=== PATIENT | male | born 1995 | race Caucasian/White ===

== ENCOUNTER 2020-07-25 06:08 | Day surgery (SDC) | payer OTHER ==
[~2020-07-25] VITALS: Ht 182.9 cm; Wt 163.9 kg
[~2020-07-25 06:08] MED LIST: ERGO50000 PO; ESCITALOPRAM OX20 MG PO
--- NOTE | 2020-07-25 11:22 | NUR ---
07/25/20 1121 Loan Morales J 0715 It was reported to Andrzej Banerjee RN and Loan Morales RN that patient's mother stated the patient was suicidal. Andrzej and Loan went in to patient room to address these concerns with patient and mother. The patient stated that he is not suicidal, he has anxiety and depression and is under the care of a mental health provider. He was asked when the last time he felt suicidal he stated when he was in high school in 2011 and 2012. We asked both the patient and his mother if he would like to speak to a mental health provider while here at [facility], both the patient and his mother declined. We proceeded with case as scheduled.
== END 2020-07-25 09:08 | disposition home or self-care (01) ==
LOC: ORSCSDS 06:08
PROVIDERS: Otolaryngology
PROC: 0CTPXZZ Resection of Tonsils, External Approach (ICD-10-PCS; principal; 2020-07-25 07:30)
DX: G47.33 Obstructive sleep apnea (adult) (pediatric) (principal); J35.01 Chronic tonsillitis; E66.01 Morbid (severe) obesity due to excess calories; Z68.42 Body mass index [BMI] 45.0-49.9, adult
CPT/HCPCS: 88304; J0330; J1100; J2250; J2405; J2704; J3010; J7120